=== PATIENT | female | born 1990 | race Hispanic/Latino ===

== ENCOUNTER 2016-09-15 07:30 | Emergency (ER) | payer OTHER ==
[~2016-09-15] VITALS: Ht 154.9 cm; Wt 63.6 kg
[~2016-09-15 07:30] MED LIST: ASCO500T8 PO; FERR-74 PO; IBUP800T28 PO; PREN-49 PO
[2016-09-15 07:33] VITALS: BP 117/78; PULSE 98; RESP 18; O2SAT 97
--- NOTE | 2016-09-15 07:39 | ED.REPORT ---
HPI-General Illness Date of Service Sep 15, 2016 ED Provider: The patient is a 25 year old otherwise healthy female who presents to the emergency department complaining of flu-like symptoms that began 5 days ago. She has noticed a fever, chills, myalgias, fatigue, cough, runny nose, dyspnea, and sore throat. Her pain is worse with swallowing. She has been taking DayQuil and NyQuil with some relief. She denies abdominal pain, nausea, vomiting, diarrhea, dysuria or hematuria. Nursing Notes Stated Complaint: COUGH, SORE THROAT Chief Complaint: FLU/Cold Symptoms Nursing Notes Reviewed: Yes Allergies: Coded Allergies: No Known Allergies (Unverified Allergy, 11/19/10) Scheduled Ascorbic Acid (Vitamin C) 500 Mg Tablet 500 MG PO BID Ferrous Sulfate (Feosol) 325 Mg Tablet 325 MG PO BIDWM Scheduled PRN Ibuprofen (Ibuprofen) 800 Mg Tablet 800 MG PO QID PRN PRN For Pain Ibuprofen (Ibuprofen) 800 Mg Tablet 800 MG PO TID PRN PRN For Pain Miscellaneous Medications Pnv with Ca,No.71/Iron/FA (Prenaplus Tablet) 1 Each Tablet 1 EACH PO General Time Seen by MD: 07:39 Chief Complaint Flu-like illness Hx Obtained From: Patient Arrived By: Walk-in Sudden in Onset?: No Onset Occurred: 5 days ago Symptom Duration: Since onset Quality: Painful Severity: Current: Mild Severity: Maximum: Moderate Recent Healthcare: No recent doctor visit, No recent hospitalization Similar Sx Previous: No Past Medical History Past Medical History None Past Surgical History Toe surgery Family History Noncontributory Smoking History Never Smoker Social History Alcohol Use: Denies alcohol use Drug Use: Denies drug use Other Social History: Local resident Ambulatory Status Independent Review of Systems Full Review of Systems Constitutional: Reports: Chills, Fatigue, Fever Ears / Nose / Throat: Reports: Nasal congestion, Sore throat Respiratory: Reports: Non-productive cough, Shortness of breath GI: Denies: Abdominal pain, Diarrhea, Nausea, Vomiting Female: Denies: Dysuria, Hematuria Musculoskeletal: Reports: Myalgia Allergy / Immune: Reports: Rhinorrhea Complete sys rev & neg: except as marked. Physical Exam Vital Signs Vital Signs Date Time Temp Pulse Resp B/P Pulse Ox O2 Delivery O2 Flow Rate FiO2 09/15/16 07:33 36.4 98 18 117/78 97 Room Air Initial VS: Reviewed Head / Eyes: Atraumatic, Normocephalic, PERRL Neck: Supple, Non-tender, Full range of motion Lymphatic: No lymphadenopathy Extremities: Vascular intact, Neuro intact, No swelling, No tenderness Skin: Warm, Dry, No cyanosis Neurologic: Alert, Oriented, Nonfocal Psychiatric: Mood/affect normal, Behavior normal, Normal thought content General/Constitutional: Awake, Alert, Well appearing ENT: Atraumatic, Airway patent, Mucous membranes moist, Pharynx NL, No peritonsillar abscess Respiratory / Chest: Atraumatic, Breath sounds NL, Breath sounds = bilat, No respiratory distress, No rales, No rhonchi, No wheezing Intermittent cough Cardiovascular: Heart rate NL, Regular rhythm, Heart sounds NL, No murmurs, No rubs, Cap refill not delayed, Peripheral circulation NL Abdomen: Atraumatic, Soft, Non-tender, No guarding, No rebound, BS normoactive , No distention Interpretation & Diagnostics Interpretation & Diagnostics: Strep test: negative Negative Influenza A and B Re-Eval/Medical Decision Med Decision/Clinical Course Likely viral upper respiratory infection no obvious focal exam findings to suggest any emergent medical condition. Patient will be discharged. Return precautions given. Source of Hx: Old records Time of Eval: 08:01 Re-Evaluation/Progress Note: Discussed results, diagnosis, and plan for discharge. All questions were addressed. Counseled Regarding: Diagnosis, Lab results, Need for follow-up, When/why to return to ED Discharge & Departure Primary Impression: Upper respiratory infection URI type: unspecified URI Qualified Code: J06.9 - Acute upper respiratory infection, unspecified Disposition: Home Discharge Condition All VS Reviewed: Yes Condition: Stable Additional Instructions: Thank you for entrusting us with your care today. Your flu swab and strep test today are both negative. Continue using Tylenol and/or Ibuprofen as needed for your discomfort. Make sure to rest and drink plenty of fluids. Followup with your regular doctor if your symptoms are not improving. Return to the emergency department for any new or concerning symptoms. Referrals: Raúl Thompson MD (PCP) Scribe Attestation Portions of this note were transcribed by Erlinda Koenig. I, Dr. Gaitan personally performed the history, physical exam and medical decision-making; I reviewed and confirmed the accuracy of the information in the transcribed note. Signed by: Javier Doss, 09/14/2016 at 0805. copies to: Raúl Thompson MD, Timothy S DO Sep 15, 2016 07:39 Erlinda Koenig Sep 15, 2016 07:46
[2016-09-15] MEDS ORDERED: IBUP800T28 PO (08:00)
== END 2016-09-15 08:22 | disposition home or self-care (01) ==
LOC: SED 07:30
DX: J06.9 Acute upper respiratory infection, unspecified (principal)

== ENCOUNTER 2016-12-31 08:39 | Emergency (ER) | payer OTHER ==
[~2016-12-31] VITALS: Ht 157.5 cm; Wt 63.6 kg
[2016-12-31 08:47] VITALS: BP 121/79; PULSE 94; RESP 16; O2SAT 99
--- NOTE | 2016-12-31 09:22 | ED.REPORT ---
HPI-General Illness Date of Service December 31, 2016 ED Provider: Jonathan Coelho MD The patient is a 26 year old female who presents to the ED due to a painful lump in her right breast for the past six days. Associated symptoms include nausea and chills. She cannot tolerate anything tactile on her right breast and states that the pain is worse today. Aleve has helped relieve the pain slightly. She denies fever, vomiting, dizziness, weakness, lightheadedness or any family hx of breast cancer. The pt has an appointment with her primary care physician on . Nursing Notes Stated Complaint: RIGHT BREAST PAIN X 6 DAYS Chief Complaint: General Complaint Nursing Notes Reviewed: Yes Allergies: Coded Allergies: No Known Allergies (Unverified Allergy, Unknown, 12/31/16) Scheduled Ascorbic Acid (Vitamin C) 500 Mg Tablet 500 MG PO BID Dicloxacillin (Dicloxacillin) 500 Mg Capsule 500 MG PO QID Ferrous Sulfate (Feosol) 325 Mg Tablet 325 MG PO BIDWM Scheduled PRN Hydrocodone-Acetaminophen 5-325 mg (Hydrocodone-Acetaminophen 5-325 mg) 1 Each Tablet 1 TABLET PO Q4H PRN PRN For Pain Ibuprofen (Ibuprofen) 800 Mg Tablet 800 MG PO QID PRN PRN For Pain Ibuprofen (Ibuprofen) 800 Mg Tablet 800 MG PO TID PRN PRN For Pain Ibuprofen (Ibuprofen) 800 Mg Tablet 800 MG PO TID PRN PRN For Pain Miscellaneous Medications Pnv with Ca,No.71/Iron/FA (Prenaplus Tablet) 1 Each Tablet 1 EACH PO General Time Seen by MD: 09:04 Chief Complaint Other (lump on right breast) Hx Obtained From: Patient Arrived By: Walk-in Sudden in Onset?: Yes Onset Occurred: 6 days ago Symptom Duration: Since onset Location: : Chest (lump in right breast) Quality: Painful Severity: Current: Moderate Recent Healthcare: No recent doctor visit, No recent hospitalization Similar Sx Previous: No Past Medical History Past Medical History None Past Surgical History Toe surgery Family History Noncontributory Smoking History Never Smoker Social History Alcohol Use: Denies alcohol use Drug Use: Denies drug use Other Social History: Local resident Ambulatory Status Independent Review of Systems Full Review of Systems Constitutional: Reports: Chills, Denies: Fever GI: Reports: Nausea, Denies: Vomiting Skin: Reports Swelling (painful lump in right breast ), Denies Diaphoresis Neurologic: Denies: Dizziness, Lightheaded, Weakness Complete sys rev & neg: except as marked. Physical Exam Vital Signs Vital Signs Date Time Temp Pulse Resp B/P Pulse Ox O2 Delivery O2 Flow Rate FiO2 12/31/16 12:13 94 16 110/75 98 Room Air 12/31/16 08:47 36.7 94 16 121/79 99 Initial VS: Reviewed Head / Eyes: Atraumatic, Normocephalic, PERRL ENT: Mucous membranes moist, Conjunctiva normal Neck: Supple, Non-tender Respiratory: Breath sounds normal, Clear to auscultation Abdomen / GI: Soft, Non-tender, No guarding, No rebound, No distention Back: No CVA tenderness Extremities: Vascular intact, Neuro intact, No swelling, No tenderness Neurologic: Alert, Oriented General/Constitutional: Awake, Alert, Cooperative Abscess #1 Location/Condition: Positive: Breast R... 2 by 3cm mass behind her right nipple no discharge no other masses in the axilla or breast Interpretation & Diagnostics Interpretation & Diagnostics: RIGHT BREAST US IMPRESSION: Changes consistent with inflammation as the most likely cause. Followup ultrasound following treatment and clearing is suggested to rule out residual pocket of abnormality. BIRADS 3 Dictated by: Adrian Sánchez M.D. on 12/31/2016 at 12:13 Approved by: Adrian Sánchez M.D. on 12/31/2016 at 12:15 Re-Eval/Medical Decision Med Decision/Clinical Course 26-year-old female with right breast painful lump 6 days. No discharge or systemic symptoms. It is tender 2 x 2 centimeter mass behind the right nipple. There is no redness or discharge. Ultrasound was performed with no fluid collection but with surrounding inflammatory changes. Likely developing infection and no abscess at this time. Nothing to drain. We will treat with dicloxacillin with plans to follow up with primary doctor this week. Return precautions given regarding any worsening swelling, pain, discharge, fevers, nausea vomiting, redness, any other new or worsening symptoms. Time of Eval: 11:52 Counseled Regarding: Diagnosis, Lab results, Need for follow-up, When/why to return to ED Discharge & Departure Primary Impression: Infection of right breast Additional Impression: Breast mass, right Disposition: Home Discharge Condition All VS Reviewed: Yes Condition: Stable Additional Instructions: Thank you for entrusting us with your care today. The ultrasound showed that there is no fluid in the breast, indicating this is probably an early infection. I am sending you home with antibiotics and pain medication. Do not drive, drink alcohol, or operate heavy machinery on the pain medication. Follow up with your primary care physician in 2 days. Return to the Emergency Department for any new or worsening symptoms including fever, increased pain, nausea, or vomiting. I hope you feel better soon, enjoy the sunshine! Referrals: Raúl Thompson MD (PCP) Scribe Attestation Portion of this note were transcribed by Tatum Elias. I, Dr. Coelho, personally performed the history, physical exam, and medical decision-making: I reviewed and confirmed the accuracy for the information in the transcribed note. Signed by: jack Rodriguez, 12/31/16 1200 copies to: Raúl Thompson MD, Ben M MD December 31, 2016 09:22 Tatum Elias December 31, 2016 09:59
[2016-12-31] MEDS ORDERED: Lidocaine 2%-Epi 1:100,000 20 mL Inj SUBQ ONE (10:05)
[2016-12-31] MEDS ORDERED: DCL500C PO (11:59)
[2016-12-31] MEDS ORDERED: HYDR-4003 PO (12:12)
[2016-12-31] MEDS ORDERED: IBUP800T28 PO (12:12)
[2016-12-31 12:13] VITALS: BP 110/75; PULSE 94; RESP 16; O2SAT 98
--- NOTE | 2016-12-31 12:17 | DRSVH ---
PROCEDURE: US BREAST LIMITED SONOGRAM, RIGHT INDICATIONS: R breast pain/mass 2x2 under nipple r/o abscess TECHNIQUE: Real-time focused scanning was performed of the subcutaneous periareolar area of the right breast, wi th image documentation. COMPARISON: None. FINDINGS: There is an area of irregular decreased attenuation somewhat heterogeneous in echo texture extending from Jaun real area medially towards a 3 to 4:00 position of the right breast. The appe arance is that of a phlegmonous area of inflammation but no definable fluid collection for drainage. The area measures 39 x 14 34 mm there is some increased vascularity. IMPRESSION: Changes consistent with inflammation as the most likely cause. Followup ultrasound follow ing treatment and clearing is suggested to rule out residual pocket of abnormality. BIRADS 3 Dictated by: Adrian Sánchez M.D. on 12/31/2016 at 12:13 Approved by: Adrian Sánchez M.D. on 12/31/2016 at 12:15
== END 2016-12-31 12:14 | disposition home or self-care (01) ==
LOC: SED 08:39
DX: N61.0 Mastitis without abscess (principal); N63 Unspecified lump in breast

== ENCOUNTER 2017-02-16 20:59 | Emergency (ER) | payer OTHER ==
[~2017-02-16] VITALS: Ht 157.5 cm; Wt 63.6 kg
[~2017-02-16 20:59] MED LIST changes: +DCL500C PO; +HYDR-4003 PO
[2017-02-16 21:17] VITALS: BP 119/80; PULSE 79; RESP 15; O2SAT 99
--- NOTE | 2017-02-16 22:23 | ED.REPORT ---
HPI-Rash / Abscess Date of Service Feb 16, 2017 ED Provider: Chuy Stoner DO Patient is a 26 year old female who presents to the ED status post breast biopsy yesterday complaining of increasing blood today. The patient reports that she had a breast biopsy yesterday after an ultrasound showed an infection in her breast. She denies any family history of breast cancer. Patient has no other complaints at this time. Nursing Notes Stated Complaint: POST OP ISSUES/BIOPSY Chief Complaint: General Complaint Nursing Notes Reviewed: Yes Allergies: Coded Allergies: No Known Allergies (Unverified Allergy, Unknown, 12/31/16) Scheduled Ascorbic Acid (Vitamin C) 500 Mg Tablet 500 MG PO BID Dicloxacillin (Dicloxacillin) 500 Mg Capsule 500 MG PO QID Ferrous Sulfate (Feosol) 325 Mg Tablet 325 MG PO BIDWM Scheduled PRN Hydrocodone-Acetaminophen 5-325 mg (Hydrocodone-Acetaminophen 5-325 mg) 1 Each Tablet 1 TABLET PO Q4H PRN PRN For Pain Ibuprofen (Ibuprofen) 800 Mg Tablet 800 MG PO QID PRN PRN For Pain Ibuprofen (Ibuprofen) 800 Mg Tablet 800 MG PO TID PRN PRN For Pain Ibuprofen (Ibuprofen) 800 Mg Tablet 800 MG PO TID PRN PRN For Pain Miscellaneous Medications Pnv with Ca,No.71/Iron/FA (Prenaplus Tablet) 1 Each Tablet 1 EACH PO General Time Seen by MD: 22:23 Chief Complaint Other (active bleeding from wound) Hx Obtained From: Patient Arrived By: Walk-in Onset Occurred: 5 - 8 hours ago Symptom Duration: Since onset Location: : Chest Severity: Current: No pain currently Recent Healthcare: No recent hospitalization, Recent doctor visit Similar Sx Previous: No Past Medical History Past Medical History None Past Surgical History Toe surgery Family History Noncontributory Smoking History Never Smoker Social History Alcohol Use: Denies alcohol use Drug Use: Denies drug use Other Social History: Local resident Ambulatory Status Independent Review of Systems Review of Systems Note: active bleeding from wound site Constitutional: Denies: Chills, Fever Respiratory: Denies: Non-productive cough, Shortness of breath Cardiovascular: Denies: Chest pain Skin: Denies Itching, Denies Rash Complete sys rev & neg: except as marked. Hematologic: Denies Bruising Physical Exam Initial Vital Signs Vital Signs (First) Date Time Temp Pulse Resp B/P Pulse Ox O2 Delivery O2 Flow Rate FiO2 02/16/17 21:17 37.1 79 15 119/80 99 Room Air Initial VS: Reviewed General/Constitutional: Awake, Alert, No acute distress Skin: Warm, Dry no active bleeding from right breast biopsy site some blood on guaze Head / Eyes: Atraumatic, Normocephalic, PERRL, EOMI Respiratory / Chest: Atraumatic, Breath sounds NL, Breath sounds = bilat, No respiratory distress Cardiovascular: Heart rate NL, Regular rhythm, Heart sounds NL Lower Extremity / Pelvis / MS: Atraumatic, Full range of motion Neurologic: Oriented X3, Speech NL, No motor deficits, No sensory deficits Psychiatric: Affect NL, Mood NL Re-Eval/Medical Decision Med Decision/Clinical Course The wound looks good. No active bleeding. No signs of infection. Will stay the course and have her follow-up with her surgeon for suture/Steri-Strip removal Re-Evaluation/Progress : Time of Eval: 22:35 Re-Evaluation/Progress Note: Discussed plan for discharge. Patient understands and agrees to the plan. All questions were addressed. Counseled Regarding: Diagnosis, Need for follow-up, When/why to return to ED Discharge & Departure Impression: Primary Impression: Visit for wound check Disposition: Home Discharge Condition All VS Reviewed: Yes Condition: Stable Patient Instructions: Acute Wound Care (GEN) Additional Instructions: The wound site looks normal. Keep your routine follow up appointment as scheduled for removal of the strip. If you check the wound and there is more blood in the surround area of the strip you should return to the ED. Return to the emergency department if you develop any new or concerning symptoms including increasing pain, redness or swelling. Referrals: Raúl Thompson MD (PCP) Scribe Attestation Portions of this note were transcribed by [place]. I, Dr. Stoner personally performed the history, physical exam and medical decision-making; I reviewed and confirmed the accuracy of the information in the transcribed note. Signed by: Javier Mann, 02/16/17 and 2250 copies to: Raúl Thompson MD, Todd P DO Feb 16, 2017 22:23 Cheryl Mills Feb 16, 2017 22:34
== END 2017-02-16 22:52 | disposition home or self-care (01) ==
LOC: SED 20:59
DX: L76.22 Postprocedural hemorrhage of skin and subcutaneous tissue following other procedure (principal); Z02.89 Encounter for other administrative examinations